=== PATIENT | female | born 1950 | race Caucasian/White ===

== ENCOUNTER → 2016-12-22 | Outpatient (CLI) | payer MEDICARE, BC | END | disposition home or self-care (01) | LOC: CFH 14:12 | PROVIDERS: ATTEND Internal Medicine | DX: R76.12 Nonspecific reaction to cell mediated immunity measurement of gamma interferon antigen response without active tuberculosis (principal); Z87.81 Personal history of (healed) traumatic fracture | CPT/HCPCS: 36415; 71020; 86480 ==

== ENCOUNTER → 2016-12-30 | Outpatient (CLI) | payer MEDICARE, BC | END | disposition home or self-care (01) | LOC: LAB 12:52 | PROVIDERS: ATTEND Internal Medicine | DX: R76.12 Nonspecific reaction to cell mediated immunity measurement of gamma interferon antigen response without active tuberculosis (principal) | CPT/HCPCS: 87015; 87116; 87206 ==

== ENCOUNTER → 2017-01-25 | Outpatient (CLI) | payer MEDICARE, BC | END | disposition home or self-care (01) | LOC: CFH 14:00 | PROVIDERS: ATTEND Nurse Practitioner Primary Care | DX: J44.9 Chronic obstructive pulmonary disease, unspecified (principal); S22.41XA Multiple fractures of ribs, right side, initial encounter for closed fracture; X58.XXXA Exposure to other specified factors, initial encounter; Y93.89 Activity, other specified; Y92.89 Other specified places as the place of occurrence of the external cause; Y99.8 Other external cause status; D25.9 Leiomyoma of uterus, unspecified; M35.00 Sjogren syndrome, unspecified; M19.90 Unspecified osteoarthritis, unspecified site; M06.9 Rheumatoid arthritis, unspecified; R76.12 Nonspecific reaction to cell mediated immunity measurement of gamma interferon antigen response without active tuberculosis; R06.00 Dyspnea, unspecified; J18.9 Pneumonia, unspecified organism | CPT/HCPCS: 71020 ==

== ENCOUNTER → 2017-12-28 | Outpatient (CLI) | payer MEDICARE, BC ==
[2017-12-28 12:43] LABS: BASOPHILS # (AUTO) 0.04 x10^3/uL (0-0.1); BASOPHILS % (AUTO) 1 % (0-1); EOSINOPHILS # (AUTO) 0.05 x10^3/uL (0-0.4); EOSINOPHILS % (AUTO) 1 % (1-7); LYMPHOCYTES # (AUTO) 2.87 x10^3/uL (1-3.4); LYMPHOCYTES % (AUTO) 37 % (22-44); MD NO; MEAN CORPUSCULAR HEMOGLOBIN 35.5 pg (27.0-34.8); MEAN CORPUSCULAR HGB CONC 34.9 g/dL (32.4-35.8); MEAN CORPUSCULAR VOLUME 101.7 fL (80-100); MEAN PLATELET VOLUME 8.3 fL (7.4-10.4); MONOCYTES # (AUTO) 0.62 x10^3/uL (0.2-0.8); MONOCYTES % (AUTO) 8 % (2-9); NEUTROPHILS % (AUTO) 54 % (42-75); PLATELET COUNT 371 x10^3/uL (130-400); RED BLOOD COUNT 4.42 x10^6/uL (3.82-5.3); RED CELL DISTRIBUTION WIDTH 12.7 % (9.6-15.2)
[2017-12-28 12:49] LABS: ALBUMIN 3.8 g/dL (3.4-5.0); ANION GAP 9 mmol/L (5-15); CALCIUM 8.7 mg/dL (8.5-10.1); CHLORIDE 103 mmol/L (98-107)
[2017-12-28 13:01] LABS: MICROSCOPIC NOT IND
[2017-12-28 13:04] LABS: HEMOGLOBIN A1C 5.2 % (4.2-6.3)
[2017-12-28 13:09] LABS: CULTURE INDICATED? NO
[2017-12-28 13:14] LABS: ALANINE AMINOTRANSFERASE 25 U/L (12-78); ALKALINE PHOSPHATASE 62 U/L (45-117); BILIRUBIN,TOTAL 0.3 mg/dL (0.2-1.0); CHOL/HDL RATIO 2.6; CHOLESTEROL, TOTAL 235 mg/dL (140-239); FREE T4 (FREE THYROXINE) 0.81 ng/dL (0.76-1.46); HDL CHOL % 39 % (28-40); HDL CHOLESTEROL (DIRECT) 91 mg/dL (40-60); LDL CHOLESTEROL,CALCULATED 129 mg/dL (54-169); LDL/HDL RATIO 1.4 (0.5-3.0); TOTAL PROTEIN 7.6 g/dL (6.4-8.2); TRIGLYCERIDES 76 mg/dL (50-200); VLDL CHOLESTEROL 15 mg/dL (0-25)
[2017-12-28 13:16] LABS: FOLATE LEVEL 18.1 ng/mL (3.1-17.5)
== END ==
LOC: CFH 11:17
PROVIDERS: ATTEND Nurse Practitioner Primary Care
DX: Z13.820 Encounter for screening for osteoporosis (principal); Z12.31 Encounter for screening mammogram for malignant neoplasm of breast; M81.0 Age-related osteoporosis without current pathological fracture; Z80.3 Family history of malignant neoplasm of breast
CPT/HCPCS: 36415; 77080; 80053; 80061; 81003; 82306; 82607; 82746; 83036; 84207; 84425; 84439; 84443; 84480; 85025; 86480; 77067

== ENCOUNTER → 2019-01-17 | Outpatient (CLI) | payer MEDICARE, BC ==
[2019-01-17 15:54] LABS: BASOPHILS # (AUTO) 0.04 x10^3/uL (0-0.1); BASOPHILS % (AUTO) 1 % (0-1); EOSINOPHILS # (AUTO) 0.03 x10^3/uL (0-0.4); EOSINOPHILS % (AUTO) 1 % (1-7); LYMPHOCYTES # (AUTO) 2.38 x10^3/uL (1-3.4); LYMPHOCYTES % (AUTO) 37 % (22-44); MD NO; MEAN CORPUSCULAR HEMOGLOBIN 35.2 pg (27.0-34.8); MEAN CORPUSCULAR VOLUME 103.4 fL (80-100); MEAN PLATELET VOLUME 7.9 fL (7.4-10.4); MONOCYTES # (AUTO) 0.66 x10^3/uL (0.2-0.8); MONOCYTES % (AUTO) 10 % (2-9); NEUTROPHILS # (AUTO) 3.32 x10^3/uL (1.8-6.8); NEUTROPHILS % (AUTO) 52 % (42-75); PLATELET COUNT 371 x10^3/uL (130-400); RED BLOOD COUNT 4.43 x10^6/uL (3.82-5.3); RED CELL DISTRIBUTION WIDTH 13.9 % (9.6-15.2)
[2019-01-17 15:56] LABS: ALBUMIN 4.7 g/dL (3.4-5.0); ANION GAP 8 mmol/L (5-15); CALCIUM 9.8 mg/dL (8.5-10.1); CHLORIDE 96 mmol/L (98-107); CHOLESTEROL, TOTAL 255 mg/dL (140-239); TRIGLYCERIDES 34 mg/dL (50-200); VLDL CHOLESTEROL 7 mg/dL (0-25)
[2019-01-17 15:59] LABS: MICROSCOPIC NOT IND
[2019-01-17 16:15] LABS: CULTURE INDICATED? NO
[2019-01-17 16:22] LABS: ALANINE AMINOTRANSFERASE 32 U/L (12-78); ALKALINE PHOSPHATASE 80 U/L (45-117); BILIRUBIN,TOTAL 0.7 mg/dL (0.2-1.0); CHOL/HDL RATIO 1.7; FOLATE LEVEL 15.6 ng/mL (3.1-17.5); FREE T4 (FREE THYROXINE) 1.05 ng/dL (0.76-1.46); HDL CHOL % 58 % (28-40); HDL CHOLESTEROL (DIRECT) 148 mg/dL (40-60); LDL CHOLESTEROL,CALCULATED 100 mg/dL (54-169); LDL/HDL RATIO 0.7 (0.5-3.0); TOTAL PROTEIN 8.2 g/dL (6.4-8.2)
[2019-01-17 16:26] LABS: HEMOGLOBIN A1C 5.3 % (4.2-6.3)
== END | disposition home or self-care (01) ==
LOC: CFH 13:02
PROVIDERS: ATTEND Internal Medicine
DX: E55.9 Vitamin D deficiency, unspecified (principal); R53.83 Other fatigue; M06.9 Rheumatoid arthritis, unspecified; R05 Cough; Z79.899 Other long term (current) drug therapy; Z72.0 Tobacco use
CPT/HCPCS: 36415; 80053; 80061; 81003; 82306; 82607; 82746; 83036; 84207; 84425; 84439; 84443; 84481; 85025; 86376; 86800

== ENCOUNTER → 2020-05-12 | Outpatient (CLI) | payer MEDICARE, BC ==
[~2020-05-12] MED LIST: METH4TAB2 PO; RESCUE INHALER; TICA90TA PO
== END | disposition home or self-care (01) ==
LOC: CFH 13:56
PROVIDERS: ATTEND Nurse Practitioner Primary Care
DX: Z12.31 Encounter for screening mammogram for malignant neoplasm of breast (principal); M81.8 Other osteoporosis without current pathological fracture; I10 Essential (primary) hypertension; M81.0 Age-related osteoporosis without current pathological fracture; N60.02 Solitary cyst of left breast; N60.01 Solitary cyst of right breast
CPT/HCPCS: 76641; 77063; 77067; 77080